=== PATIENT | female | born 2000 | race Caucasian/White ===

== ENCOUNTER 2024-09-06 08:38 | Emergency (ER) | payer SELFPAY ==
[2024-09-06 08:42] VITALS: BP 127/81; PULSE 57; TEMP 37.1; O2SAT 98; BMI 35.5
--- NOTE | 2024-09-06 08:53 | ED.EYEPROB1 ---
HPI - Eye Problem General Chief complaint: Eye Problems Stated complaint: RIGHT EYE PAIN Time Seen by Provider: 09/06/24 08:47 Source: patient Mode of arrival: walk-in History of Present Illness HPI Narrative: The patient is a 24-year-old female coming to the ER with almost 4 days history of right eye irritation and itching, she denies any fall or trauma denies any direct hit to the eye, she did not start use any kind of new make-up or any new facial cream The patient denies any blurry vision she wears glasses but no contact lenses Related Data Previous Rx's ?Medication ?Instructions ?Recorded tobramycin 0.3 % eye drops 2 drp ophthalmic (eye) Q4H 5 days 09/06/24 #5 mL Allergies Allergy/AdvReac Type Severity Reaction Status Date / Time No Known Drug Allergies Allergy Verified 09/06/24 08:43 Review of Systems ROS Status of ROS 10 or more systems reviewed and unremarkable except as noted in history and below PFSH PFSH Social History Little interest or pleasure in doing things: not at all Feeling down, depressed, or hopeless: not at all Exam Narrative Exam Narrative: Nurses notes and vital signs reviewed and patient is not hypoxic. General: Well-appearing and in no apparent distress. Skin: Warm, dry, no pallor noted. No rash. Head: Normocephalic, atraumatic. Neck: Supple, non-tender. Eye examination showed that the patient have a left eye exam that was normal: Right eye examination is showing conjunctival erythema no signs of trauma no hyphema no hypopyon pupils are reactive, the patient have a no foreign body seen and no upper or lower eyelid erythema or swelling. No limitation of movement of the right eye Constitutional Vital Signs, click to edit/add: Last Vital Signs Temp 98.7 F 09/06/24 08:42 Pulse 57 L 09/06/24 08:42 BP 127/81 09/06/24 08:42 Pulse Ox 98 09/06/24 08:42 O2 Del Method Room Air 09/06/24 08:42 Course Vital Signs Vital signs: Vital Signs Temperature 98.7 F 09/06/24 08:42 Pulse Rate 57 L 09/06/24 08:42 Blood Pressure 127/81 09/06/24 08:42 Pulse Oximetry 98 09/06/24 08:42 Oxygen Delivery Method Room Air 09/06/24 08:42 Temperature 98.7 F 09/06/24 08:42 Pulse Rate 57 L 09/06/24 08:42 Blood Pressure 127/81 09/06/24 08:42 Pulse Oximetry 98 09/06/24 08:42 Oxygen Delivery Method Room Air 09/06/24 08:42 MDM - Eye Problem MDM Narrative Medical decision making narrative: The patient presented to us with a conjunctivitis mostly bacterial she was started on tobramycin eyedrops she was instructed about the importance of follow-up with her park naturalist within a week Patient also to monitor for improvement within the next 2 days The patient is to follow up with primary care physician in next 2-3 days or to return to the emergency department should any of the signs or symptoms worsen or new symptoms develop. The patient agrees with the following Diagnosis and Treatment plan and the patient will be discharged home. Discharge Plan Discharge Chief Complaint: Eye Problems Clinical Impression: Bacterial conjunctivitis Patient Disposition: Home, Self-Care Time of Disposition Decision: 08:55 Condition: Good Prescriptions / Home Meds: New tobramycin 0.3 % drops 2 drp ophthalmic (eye) Q4H 5 Days Qty: 5 0RF Rx Instructions: for the right eye Print Language: Slovenian Instructions: Conjunctivitis (ED) Referrals: Physician,Non-Staff, MD [Primary Care Provider] - 1 week
== END 2024-09-06 09:08 | disposition home or self-care (01) ==
PROVIDERS: Emergency Provider Emergency Medicine
DX: H10.31 Unspecified acute conjunctivitis, right eye (principal); H57.89 Other specified disorders of eye and adnexa
CPT/HCPCS: 99283

== ENCOUNTER 2024-09-08 16:34 | Emergency (ER) | payer SELFPAY ==
[2024-09-08 16:40] VITALS: BP 139/61; PULSE 60; TEMP 37.3; O2SAT 100; BMI 35.5
--- OUTSIDE RECORDS SUMMARY | 2024-09-08 16:41 | XMS_ITS | Clinical Summary ---
Author Organization [facility] Address [address] [place] [address] Care Team Providers Care Event Sales Manager Name Role Phone Alida Stratton MD Primary Care Provider Unavailab le Social History Tobacco Use Types Packs/Day Years Used Date Smoking Tobacco: Never Assessed Comments Unknown Sex and Gender Information Value Date Recorded Sex Assigned at Not on file Legal Sex Female 11:46 PM EST Gender Identity Not on file Sexual Orientation Not on file Plan of Treatment Not on file Care Teams Event Sales Manager Relationship Specialty Start Date End Date Alida Stratton MD [address] [place] [address] PCP - General 07/29/12
--- NOTE | 2024-09-08 16:45 | ED.EYEPROB1 ---
HPI - Eye Problem General Chief complaint: Eye Problems Stated complaint: RIGHT EYE PROBLEM Time Seen by Provider: 09/08/24 16:45 Source: patient Mode of arrival: walk-in History of Present Illness HPI Narrative: 24 year old female presents to the ED for right eye irritation, drainage, erythema, itching, crusting. Onset was a few days ago. She has been using tobramycin for 3 days without improvement. Denies injury, fever, vision changes. Related Data Previous Rx's ?Medication ?Instructions ?Recorded tobramycin 0.3 % eye drops 2 drp ophthalmic (eye) Q4H 5 days 09/06/24 #5 mL ofloxacin 0.3 % eye drops (Ocuflox) See Rx Instructions ophthalmic 09/08/24 (eye) .COMPLEX #5 mL Allergies Allergy/AdvReac Type Severity Reaction Status Date / Time No Known Drug Allergies Allergy Verified 09/06/24 08:43 Review of Systems ROS Constitutional Denies: fever or chills Eyes Reports: light sensitivity, eye discomfort and eye discharge; Denies: floaters or seeing flashes Ears, nose, mouth, and throat Denies: throat pain, nasal discharge or nasal congestion Cardiovascular Denies: chest pain Respiratory Denies: shortness of breath Neurological Denies: headache or dizziness PFSH PFSH Social History Little interest or pleasure in doing things: not at all Feeling down, depressed, or hopeless: not at all Exam Constitutional Vital Signs, click to edit/add: Last Vital Signs Temp 99.1 F 09/08/24 16:40 Pulse 60 09/08/24 16:40 Resp 16 09/08/24 16:40 BP 139/61 09/08/24 16:40 Pulse Ox 100 09/08/24 16:40 Common normals: no apparent distress and oriented x3 General appearance: cooperative Eye Common normals: PERRL and EOMs intact bilaterally Conjunctiva: conjunctiva abnormal right conjunctival injection; without subconjunctival hemmorhages Cornea: fluorescein used Other: Right eye was anesthetized with tetracaine, stained with a fluorescein strip, and examined with the wood's lamp. No corneal abrasion was noted. No FB noted. Crusting, drainage noted to right eye. Erythema noted. No hyphema. Neck & C-Spine Common normals: supple Respiratory Common normals: normal respiratory effort Effort & inspection: able to speak in complete sentences and symmetric chest movement Cardio Common normals: regular rate Neuro Common normals: oriented x3 and moves all extremities Sensorium/orientation: awake and alert Speech: speech normal Course Vital Signs Vital signs: Vital Signs Temperature 99.1 F 09/08/24 16:40 Pulse Rate 60 09/08/24 16:40 Respiratory Rate 16 09/08/24 16:40 Blood Pressure 139/61 09/08/24 16:40 Pulse Oximetry 100 09/08/24 16:40 Temperature 99.1 F 09/08/24 16:40 Pulse Rate 60 09/08/24 16:40 Respiratory Rate 16 09/08/24 16:40 Blood Pressure 139/61 09/08/24 16:40 Pulse Oximetry 100 09/08/24 16:40 MDM - Eye Problem MDM Narrative Medical decision making narrative: No corneal abrasion was noted. Stop the tobramycin. A prescription was provided for Ocuflox. Follow up with an lime supervisor for a recheck, further evaluation and treatment. Differential Diagnosis Differential diagnosis: Likely corneal abrasion, conjunctivitis and corneal ulcer Medical Records Attestation: I reviewed the patient's medical records. Discharge Plan Discharge Chief Complaint: Eye Problems Clinical Impression: Conjunctivitis Patient Disposition: Home, Self-Care Time of Disposition Decision: 16:55 Condition: Good Mode of Transportation: Private Vehicle Prescriptions / Home Meds: New ofloxacin [Ocuflox] 0.3 % drops See Rx Instructions .ROUTE .COMPLEX Qty: 5 0RF Rx Instructions: put 1-2 drps into affected eye(s) every 2-4 h x 2 days, then 1-2 drps 4 times/day days 3-7 No Action tobramycin 0.3 % drops 2 drp ophthalmic (eye) Q4H 5 Days Qty: 5 0RF Rx Instructions: for the right eye Print Language: Jamaican Additional Instructions: Follow up with an lime supervisor. Stop using the tobramycin drops. Return to the ER if your condition worsens. Referrals: Physician,Non-Staff, MD [Primary Care Provider] - 1 week Discharge Date/Time: 09/08/24 17:03
[2024-09-08] MEDS: FLUORESCEIN SODIUM 1 MG STRIP OP (16:58)
[2024-09-08] MEDS: TETRACAINE HCL 0.5% OP SOL 80 DROP/4 ML BOTTLE OP (16:58)
== END 2024-09-08 17:03 | disposition home or self-care (01) ==
PROVIDERS: Emergency Provider Emergency Medicine
DX: H10.9 Unspecified conjunctivitis (principal)
CPT/HCPCS: 99283